=== PATIENT | born 1970 | race Caucasian/White ===

== ENCOUNTER → 2023-04-19 | Outpatient (CLI) | payer BC ==
[2023-04-19 11:14] LABS: Basophils # (A) 0.02 X 10*3/uL (0.00-0.10); Basophils % (A) 0.6 %; Eosinophils # (A) 0.05 X 10*3/uL (0.04-0.35); Eosinophils % (A) 1.4 %; HCT 42.4 % (37.2-50.0); HGB 13.7 d/dL (12.0-17.0); Lymphocytes # (A) 0.99 X 10*3/uL (0.90-5.00); Lymphocytes % (A) 28.3 %; MCHC 32.3 d/dL (32.0-37.0); MCV 92.8 FL (80.0-97.0); Mean Platelet Volume 9.7 FL (9.5-12.2); Monocytes # (A) 0.28 X 10*3/uL (0.20-1.00); NRBC Per 100 WBC 0 X 10*3/uL (0.00-0.01); Neutrophils # (A) 2.15 X 10*3/uL (1.80-7.70); Neutrophils % (A) 61.4 %; Platelet Count 277 X 10*3/uL (140-440); RBC 4.57 X 10*6/uL (4.10-5.60); RDW 12.8 % (11.5-14.5)
[2023-04-19 11:37] LABS: Blood Urea Nitrogen 11.2 mg/dL (9.0-27.0); Chloride 108 mmol/L (96-109); Chol/HDL Ratio 2.16 Ratio; Glucose 92 mg/dL (70-110); LDL Cholesterol,Calculated 95.3 mg/dL (0.0-131.0); Potassium 4.4 mmol/L (3.5-5.5); Sodium 145 mmol/L (135-145); VLDL Calculation 17.04 mg/dL (5.00-40.00)
[2023-04-19 11:38] LABS: ALT 17 U/L (8-49); AST 15 U/L (13-35); Albumin 4.9 d/dL (3.8-4.9); Albumin/Globulin Ratio 2.23 Ratio (1.60-3.17); Alkaline Phosphatase 149 U/L (41-126); Calcium 9.6 mg/dL (8.7-10.3); Carbon Dioxide 24.9 mmol/L (21.6-31.8); Globulin 2.2 d/dL (1.6-3.3); Total Bilirubin 0.5 mg/dL (0.3-1.2); Total Protein 7.1 d/dL (6.2-8.2)
== END | disposition home or self-care (01) ==
LOC: LABWHC1 07:19
PROVIDERS: ATTEND Family Medicine
DX: Z00.00 Encounter for general adult medical examination without abnormal findings (principal); R73.01 Impaired fasting glucose
CPT/HCPCS: 36415; 80053; 80061; 83036; 84443; 85025

== ENCOUNTER → 2023-06-21 | Outpatient (CLI) | payer BC ==
--- NOTE | 2023-06-30 23:22 | MM ---
Reason for Exam: Screening (asymptomatic). Last mammogram was performed 1 year(s) and 3 month(s) ago. Patient History: Patient used Hormonal Contraceptives for 15 years. Paternal aunt had breast cancer. Paternal cousin had breast cancer. Prior Study Comparison: 10/09/2018 Bilateral Screening Mammogram, [facility]. 05/17/2020 Bilateral Screening Mammogram, [facility] [place]. 03/20/2022 Bilateral Screening Mammogram, [facility] [place]. Tissue Density: There are scattered fibroglandular densities. Findings: Analyzed By CAD. Areas of chronic nodularity on both sides. There is no suspicious group of microcalcifications or new suspicious mass in either breast. Overall Assessment: Benign, BI-RAD 2 Management: Screening Mammogram of both breasts in 1 year. . Patient should continue monthly self-breast exams. A clinical breast exam by your physician is recommended on an annual basis. This exam should not preclude additional follow-up of suspicious palpable abnormalities. Electronically signed and approved by: Nicole Carr M.D. Radiologist
== END | disposition home or self-care (01) ==
LOC: RADMAMWWP 12:46
PROVIDERS: ATTEND Family Medicine
DX: Z12.31 Encounter for screening mammogram for malignant neoplasm of breast (principal); Z80.3 Family history of malignant neoplasm of breast
CPT/HCPCS: 77067